=== PATIENT | female | born 1985 ===

== ENCOUNTER → 2016-12-16 | Outpatient (CLI) | payer OTHER ==
--- NOTE | 2016-12-16 16:25 | DIAGNOSTIC IMAGING REPORT ---
RIGHT HAND 3 VIEWS CLINICAL HISTORY: Right hand injury. FINDINGS: 3 views of the right hand are obtained. No prior studies are available for comparison at the time of dictation. The skeletal structures are well mineralized. There is a comminuted and minimally distracted spiral fracture through the mid shaft of the fifth metacarpal. No intra-articular extension is seen. Overlying soft tissue edema is noted. No additional fracture is identified. The joint spaces of the hand are preserved. IMPRESSION: Minimally distracted and comminuted spiral fracture through the midshaft of the fifth metacarpal as above. Electronically signed by: Dariel Briggs M.D. 12/16/2016 4:23 PM Dictated Date/Time: 12/16/2016 4:22 PM
== END | disposition home or self-care (01) ==
LOC: C.RDSM 15:51
PROVIDERS: ATTEND Family Medicine
DX: S62.356A Nondisplaced fracture of shaft of fifth metacarpal bone, right hand, initial encounter for closed fracture (principal); X58.XXXA Exposure to other specified factors, initial encounter

== ENCOUNTER → 2017-01-08 | Outpatient (CLI) | payer OTHER ==
--- NOTE | 2017-01-08 10:17 | DIAGNOSTIC IMAGING REPORT ---
RIGHT HAND MIN 3 VIEWS CLINICAL HISTORY: Fifth metacarpal fracture follow-up study COMPARISON: 12/16/2016 DISCUSSION: There is no change in the alignment of the essentially nondisplaced mildly comminuted fifth metacarpal fracture. There is no intra-articular extension. No callus formation is yet visualized. IMPRESSION: Fracture involving the midshaft of the fifth metacarpal. No change in alignment. Electronically signed by: Yoan Lorenzana M.D. 01/08/2017 10:15 AM Dictated Date/Time: 01/08/2017 10:14 AM
== END | disposition home or self-care (01) ==
LOC: C.RDSM 10:15
PROVIDERS: ATTEND Family Medicine
DX: S62.326A Displaced fracture of shaft of fifth metacarpal bone, right hand, initial encounter for closed fracture (principal); X58.XXXA Exposure to other specified factors, initial encounter

== ENCOUNTER → 2017-02-24 | Outpatient (CLI) | payer OTHER ==
--- NOTE | 2017-02-24 10:20 | DIAGNOSTIC IMAGING REPORT ---
RIGHT HAND MIN 3 VIEWS CLINICAL HISTORY: RIGHT HAND FX Right trauma. Pain. COMPARISON: 01/08/2017 DISCUSSION: Fracture fifth metacarpal. No change in positioning compared to the prior study. Fracture lines are slightly less distinct consistent with partial interval healing. Alignment remains anatomic. No new or interval finding. There is no evidence for soft tissue swelling. IMPRESSION: Partial interval healing of a comminuted fracture fifth metacarpal. Electronically signed by: Jae Holland M.D. 02/24/2017 10:18 AM Dictated Date/Time: 02/24/2017 10:18 AM
== END | disposition home or self-care (01) ==
LOC: C.RDSM 10:10
PROVIDERS: ATTEND Family Medicine
DX: S62.316A Displaced fracture of base of fifth metacarpal bone, right hand, initial encounter for closed fracture (principal); X58.XXXA Exposure to other specified factors, initial encounter